=== PATIENT | male | born 1970 | race Caucasian/White ===

== ENCOUNTER 2017-11-27 14:26 | Emergency (ER) | payer OTHER ==
[2017-11-27] MEDS ORDERED: LORazepam 2 MG/ML VIAL IVP ONE (14:37)
[2017-11-27] MEDS ORDERED: 0.9 % SODIUM CHLORIDE 1,000 ML IV ONE (14:37)
[2017-11-27] MEDS: 0.9 % SODIUM CHLORIDE 0 ML IV ONE ×2 (14:42→15:39)
--- NOTE | 2017-11-27 15:11 | ED Physician Documentation ---
General Adult - HISTORIAN Historian: patient - HPI Stated Complaint: Left Thumb Laceration Chief Complaint: General Adult Onset: minutes Timing: still present Severity: moderate Further Comments: yes (Pt is a 47 yo male with a L thumb laceration. Pt was using a hand saw cutting a board when the saw slipped out its groove. Tetanus is not utd.) - ROS CONST: no problems EYES/ENT: none CVS/RESP: none GI/: none MS/SKIN/LYMPH: other (L thumb laceration) - PAST HX Past History: other (Anxiety, bipolar d/o, GERD, HTN) Allergies/Adverse Reactions: Allergies Allergy/AdvReac Type Severity Reaction Status Date / Time codeine Allergy Verified 11/27/17 15:01 Penicillins Allergy Verified 11/27/17 15:01 Home Medications: Ambulatory Orders Medication Instructions Recorded Metoprolol Tartrate [Lopressor] 25 mg PO BID 11/27/17 Pantoprazole Sodium [Protonix] 40 mg PO 0700 11/27/17 - SOCIAL HX Smoking History: quit greater than 1 year - FAMILY HX Family History: No - VITAL SIGNS Vital Signs: Vital Signs Temp Pulse Resp BP Pulse Ox 98 F 88 18 187/88 98 11/27/17 14:30 11/27/17 14:30 11/27/17 14:30 11/27/17 14:30 11/27/17 14:30 - REVIEWED ASSESSMENTS Nursing Assessment Reviewed: Yes Vitals Reviewed: Yes Procedures Wound Location: upper extremity (L thumb) Wound Length: 2 cm Wound's Depth, Shape: superficial Wound Explored: clean Betadine Prep?: Yes Anesthesia: 1% Lidocaine Volume of Anesthetic: 5 cc Wound Debrided: minimal Wound Repaired With: sutures Suture Size/Type: 4:0, nylon Number of Sutures: 5 Layer Closure?: No Sterile Dressing Applied?: Yes Progress - Progress Progress: Topical abx, dressing in ER Apply topical antibiotic such as Bacitracin, Neosporin, or Triple Antibiotic to sutured area every 12 hrs for 5 days. Follow up with primary provider in 5 to 7 days for suture removal. ED Results Lab/Radiology - Orders Orders: ED Orders Category Date Time Status 0.9 % Sodium Chloride [Normal Saline] 1,000 ml Med 11/27/17 14:30 Discontinued IV .STK-MED 0.9 % Sodium Chloride [Normal Saline] 1,000 ml Med 11/27/17 14:37 Discontinued IV Q1H LORazepam [Ativan] Med 11/27/17 14:37 Discontinued 2 mg IVP NOW ONE General Adult Physical Exam - PHYSICAL EXAM GENERAL APPEARANCE: mild distress NECK: normal inspection, supple RESPIRATORY: no resp distress, chest non-tender, breath sounds normal CVS: reg rate & rhythm, heart sounds normal BACK: normal inspection SKIN: other (L thumb laceration, V-shaped, 2 cm., superficial.) EXTREMITIES: normal range of motion NEURO: oriented X3, motor nml, sensation nml Discharge Clincal Impression: Laceration of thumb Qualifiers: Encounter type: initial encounter Damage to nail status: without damage Foreign body presence: without foreign body Laterality: left Qualified Code(s): S61.012A - Laceration without foreign body of left thumb without damage to nail , initial encounter Referrals: Primary Doctor,No [Primary Care Provider] - Condition: Good Disposition: 01 HOME, SELF-CARE Decision to Admit: NO Decision Time: 16:00
[2017-11-27] MEDS ORDERED: Lidocaine 1% 5ml(IM or SUTURE)(PAIN CLINIC) ONE (15:15)
[2017-11-27] MEDS ORDERED: Lidocaine 1% 5ml(IM or SUTURE)(PAIN CLINIC) IJ ONE (15:30)
[2017-11-27] MEDS ORDERED: DIPH,PERTUSS(ACELL),TET VAC/PF 0.5 ML DISP.SYRIN IM ONE (15:57)
[2017-11-27 16:13] VITALS: BP 150/68
== END 2017-11-27 16:12 | disposition home or self-care (01) ==
LOC: ED 14:26
DX: S61.012A Laceration without foreign body of left thumb without damage to nail, initial encounter (principal); W29.8XXA Contact with other powered hand tools and household machinery, initial encounter; Y93.9 Activity, unspecified; Y92.9 Unspecified place or not applicable
CPT/HCPCS: 12001; 90471; 90715; 99283; J2060; J7030